=== PATIENT | male | born 1960 | race African-American/Black ===

== ENCOUNTER 2016-05-02 19:37 | Emergency (ER) | payer OTHER ==
[~2016-05-02] VITALS: Ht 175.3 cm; Wt 95.3 kg
[~2016-05-02 19:37] MED LIST: ASPI81TA2 PO; BENA10TA2 PO; NPH,100V SQ; SIMV40TA5 PO
[2016-05-02 20:27] LABS: ABG BASE EXCESS 4.4 mmol/L; ABG HCO3 28.8 mmol/L; ABG PCO2 42.1 mmHg (35.0-45.0); ABG PH 7.453 (7.350-7.450); ABG PO2 61.8 mmHg (75.0-100.0); ABG TOTAL HEMOGLOBIN 16.4 G/dL (13.5-18.0); ALLEN TEST Pass; AaDO2 37.5 mmHg; O2Hb 87.1 % (94.0-97.0)
[2016-05-02 20:29] LABS: EOSINOPHILS # (AUTO) 0.1 /CMM (0.0-0.7); MEAN CORPUSCULAR HEMOGLOBIN 29 PG (26.0-33.0)
[2016-05-02 20:41] LABS: BASOPHILS # (AUTO) 0.1 /CMM (0.0-0.2); DIFF TOTAL % 100 %; EOSINOPHILS % (AUTO) 0.7 % (0.0-6.0); HEMATOCRIT 48 % (39-51); HEMOGLOBIN 15.8 g/dL (13.5-17.5); LYMPHOCYTES % (AUTO) 22.4 % (20.0-44.0); MEAN CORPUSCULAR HGB CONC 33 g/dl (31.0-36.0); MEAN CORPUSCULAR VOLUME 90 fL (80-96); MONOCYTES # (AUTO) 0.8 /CMM (0.1-1.30); NEUTROPHILS # (AUTO) 5.9 /CMM (1.8-8.9); NEUTROPHILS % (AUTO) 66.9 % (43.0-81.0); PLATELET COUNT (AUTO) 209 /CMM (150-450); RED BLOOD CELL COUNT(AUTO) 5.37 MIL/uL (4.5-6.0); WHITE BLOOD COUNT (AUTO) 8.9 K/uL (4.3-11.0)
[2016-05-02 20:42] LABS: CALCIUM, SERUM 9.1 mg/dL (8.5-10.1); POTASSIUM 4.4 mmol/L (3.5-5.1)
[2016-05-02 21:09] VITALS: BP 151/61
[2016-05-02 21:21] LABS: ACETONE, SERUM NEGATIVE (NEGATIVE)
== END 2016-05-02 21:11 | disposition home or self-care (01) ==
LOC: ER 19:37
DX: E11.65 Type 2 diabetes mellitus with hyperglycemia (principal); I10 Essential (primary) hypertension; Z91.14 Patient's other noncompliance with medication regimen; F17.200 Nicotine dependence, unspecified, uncomplicated; Z79.82 Long term (current) use of aspirin; Z79.4 Long term (current) use of insulin
CPT/HCPCS: 36415; 36600; 80048; 82010; 82962; 83735; 85025; 99284; A4606; Z7610

== ENCOUNTER 2016-05-03 09:50 | Emergency (ER) | payer OTHER ==
[~2016-05-03] VITALS: Ht 175.3 cm; Wt 95.3 kg
[2016-05-03 09:57] VITALS: BP 138/98
== END 2016-05-03 10:15 | disposition home or self-care (01) ==
LOC: ER 09:54
DX: I10 Essential (primary) hypertension (principal); E11.9 Type 2 diabetes mellitus without complications; F17.200 Nicotine dependence, unspecified, uncomplicated; Z79.82 Long term (current) use of aspirin
CPT/HCPCS: 99283; A4606; Z7610

== ENCOUNTER 2016-06-29 08:30 | Emergency (ER) | payer OTHER ==
[~2016-06-29] VITALS: Ht 175.3 cm; Wt 97.5 kg
[2016-06-29 08:35] VITALS: BP 139/89
== END 2016-06-29 09:04 | disposition home or self-care (01) ==
LOC: ER 08:34
DX: Z76.0 Encounter for issue of repeat prescription (principal); E11.9 Type 2 diabetes mellitus without complications; I10 Essential (primary) hypertension; Z79.82 Long term (current) use of aspirin; F17.210 Nicotine dependence, cigarettes, uncomplicated
CPT/HCPCS: 99283; A4606; Z7610

== ENCOUNTER 2016-09-09 08:25 | Emergency (ER) | payer MEDICAID, OTHER ==
[~2016-09-09] VITALS: Ht 165.1 cm; Wt 81.6 kg
[2016-09-09 08:30] VITALS: BP 123/95
--- NOTE | 2016-09-09 08:50 | NUR ---
Patient discharged to home in stable condition. Prescription handed to patient. Written and verbal after care instructions given. Patient verbalizes understanding of instruction.
== END 2016-09-09 08:50 | disposition home or self-care (01) ==
LOC: EDUNIT# 08:25 → ER 08:27
DX: Z76.0 Encounter for issue of repeat prescription (principal); I10 Essential (primary) hypertension; E11.9 Type 2 diabetes mellitus without complications; F17.200 Nicotine dependence, unspecified, uncomplicated; Z79.82 Long term (current) use of aspirin
CPT/HCPCS: 99283; A4606; Z7610

== ENCOUNTER 2016-09-22 08:21 | Emergency (ER) | payer MEDICAID ==
[~2016-09-22] VITALS: Ht 175.3 cm; Wt 96.2 kg
[2016-09-22 08:36] VITALS: BP 137/75
== END 2016-09-22 09:00 | disposition home or self-care (01) ==
LOC: ER 08:25
DX: Z76.0 Encounter for issue of repeat prescription (principal); E11.9 Type 2 diabetes mellitus without complications; I10 Essential (primary) hypertension; Z79.82 Long term (current) use of aspirin; Z79.84 Long term (current) use of oral hypoglycemic drugs; Z79.899 Other long term (current) drug therapy; F17.200 Nicotine dependence, unspecified, uncomplicated
CPT/HCPCS: 99283; A4606; Z7610

== ENCOUNTER 2016-11-10 08:24 | Emergency (ER) | payer MEDICAID, OTHER ==
[~2016-11-10] VITALS: Ht 175.3 cm; Wt 100.7 kg
[2016-11-10 08:24] VITALS: BP 126/93
== END 2016-11-10 08:48 | disposition home or self-care (01) ==
LOC: ER 08:28
DX: Z76.0 Encounter for issue of repeat prescription (principal); E11.9 Type 2 diabetes mellitus without complications; I10 Essential (primary) hypertension; Z79.82 Long term (current) use of aspirin; F17.200 Nicotine dependence, unspecified, uncomplicated
CPT/HCPCS: 99283; A4606; Z7610

== ENCOUNTER 2017-01-14 07:28 | Emergency (ER) | payer OTHER ==
[~2017-01-14] VITALS: Ht 175.3 cm; Wt 97.5 kg
[2017-01-14 07:28] VITALS: BP 143/88
== END 2017-01-14 08:21 | disposition home or self-care (01) ==
LOC: ER 07:31
DX: Z76.0 Encounter for issue of repeat prescription (principal); E11.65 Type 2 diabetes mellitus with hyperglycemia; F17.210 Nicotine dependence, cigarettes, uncomplicated; I10 Essential (primary) hypertension; Z79.82 Long term (current) use of aspirin; Z79.4 Long term (current) use of insulin
CPT/HCPCS: 99283; 99406; A4606; Z7610

== ENCOUNTER 2017-02-09 07:59 | Emergency (ER) | payer MEDICAID, OTHER ==
[~2017-02-09] VITALS: Ht 175.3 cm; Wt 97.5 kg
[2017-02-09 07:59] VITALS: BP 155/110
== END 2017-02-09 08:31 | disposition home or self-care (01) ==
LOC: ER 08:04
DX: Z76.0 Encounter for issue of repeat prescription (principal); E11.65 Type 2 diabetes mellitus with hyperglycemia; I10 Essential (primary) hypertension; Z79.82 Long term (current) use of aspirin; Z79.4 Long term (current) use of insulin
CPT/HCPCS: 99283; A4606; Z7610

== ENCOUNTER 2017-03-18 21:52 | Emergency (ER) | payer MEDICAID ==
[~2017-03-18] VITALS: Ht 175.3 cm; Wt 77.1 kg
[~2017-03-18 21:52] MED LIST changes: +ASPI-1169 PO; -ASPI81TA2 PO
[2017-03-18 22:16] VITALS: BP 143/90
== END 2017-03-18 22:49 | disposition home or self-care (01) ==
LOC: ER 21:53
DX: Z76.0 Encounter for issue of repeat prescription (principal); I10 Essential (primary) hypertension; E11.9 Type 2 diabetes mellitus without complications; F17.200 Nicotine dependence, unspecified, uncomplicated; Z79.82 Long term (current) use of aspirin; Z79.4 Long term (current) use of insulin
CPT/HCPCS: A4606; Z7610

== ENCOUNTER 2017-06-29 11:45 | Emergency (ER) | payer MEDICAID, OTHER ==
[~2017-06-29] VITALS: Ht 175.3 cm; Wt 79.4 kg
[2017-06-29 11:45] VITALS: BP 121/77
[~2017-06-29 11:45] MED LIST changes: -BENA10TA2 PO; +BENA10TA9 PO
== END 2017-06-29 12:31 | disposition home or self-care (01) ==
LOC: ER 11:50
DX: Z76.0 Encounter for issue of repeat prescription (principal); I10 Essential (primary) hypertension; E11.9 Type 2 diabetes mellitus without complications; F17.200 Nicotine dependence, unspecified, uncomplicated; Z79.82 Long term (current) use of aspirin; Z79.4 Long term (current) use of insulin
CPT/HCPCS: 99283; A4606; Z7610

== ENCOUNTER 2017-08-06 08:14 | Emergency (ER) | payer OTHER ==
[~2017-08-06] VITALS: Ht 182.9 cm; Wt 77.1 kg
[2017-08-06 08:17] VITALS: BP 137/91
== END 2017-08-06 08:32 | disposition home or self-care (01) ==
LOC: ER 08:17
DX: I10 Essential (primary) hypertension (principal); E11.9 Type 2 diabetes mellitus without complications; F17.200 Nicotine dependence, unspecified, uncomplicated; Z76.0 Encounter for issue of repeat prescription; Z79.82 Long term (current) use of aspirin
CPT/HCPCS: A4606; Z7610

== ENCOUNTER 2017-09-16 06:52 | Emergency (ER) | payer OTHER ==
[~2017-09-16] VITALS: Ht 170.2 cm; Wt 90.3 kg
[2017-09-16 07:02] VITALS: BP 135/90
[2017-09-16] MEDS ORDERED: INSULIN REGULAR, HUMAN 100 UNIT/ML 10 ML VIAL ONE (07:29)
[2017-09-16] MEDS ORDERED: INSULIN REGULAR, HUMAN 100 UNIT/ML 10 ML VIAL SQ ONE (07:30)
== END 2017-09-16 07:45 | disposition home or self-care (01) ==
LOC: ER 06:55
DX: E11.65 Type 2 diabetes mellitus with hyperglycemia (principal); I10 Essential (primary) hypertension; F17.200 Nicotine dependence, unspecified, uncomplicated; Z79.82 Long term (current) use of aspirin; Z79.4 Long term (current) use of insulin
CPT/HCPCS: 82962; 96372; 99283; A4606; J1815; Z7610

== ENCOUNTER 2017-12-10 06:17 | Emergency (ER) | payer OTHER ==
[~2017-12-10] VITALS: Ht 175.3 cm; Wt 88.5 kg
[2018-01-08 10:44] VITALS: BP 145/98
== END 2017-12-10 06:36 | disposition home or self-care (01) ==
LOC: ER 06:22
DX: I10 Essential (primary) hypertension (principal); E11.9 Type 2 diabetes mellitus without complications; F17.200 Nicotine dependence, unspecified, uncomplicated; Z79.82 Long term (current) use of aspirin
CPT/HCPCS: A4606; Z7610

== ENCOUNTER 2018-05-02 07:53 | Emergency (ER) | payer OTHER ==
[~2018-05-02] VITALS: Ht 175.3 cm; Wt 90.7 kg
[2018-05-02 07:53] VITALS: BP 142/74
== END 2018-05-02 08:44 | disposition home or self-care (01) ==
LOC: ER 07:56
DX: J06.9 Acute upper respiratory infection, unspecified (principal); I10 Essential (primary) hypertension; E11.9 Type 2 diabetes mellitus without complications; F17.200 Nicotine dependence, unspecified, uncomplicated; Z79.82 Long term (current) use of aspirin
CPT/HCPCS: 99281; A4606; Z7502

== ENCOUNTER 2018-06-24 07:14 | Emergency (ER) | payer OTHER ==
[~2018-06-24] VITALS: Ht 175.3 cm; Wt 93.9 kg
[2018-06-24 07:20] VITALS: BP 156/107
== END 2018-06-24 07:46 | disposition home or self-care (01) ==
LOC: ER 07:15
DX: I10 Essential (primary) hypertension (principal); E11.9 Type 2 diabetes mellitus without complications; F17.200 Nicotine dependence, unspecified, uncomplicated; Z79.82 Long term (current) use of aspirin; Z76.0 Encounter for issue of repeat prescription
CPT/HCPCS: Z7502

== ENCOUNTER 2018-12-12 10:36 | Emergency (ER) | payer SELFPAY ==
[~2018-12-12] VITALS: Ht 175.3 cm; Wt 90.7 kg
[~2018-12-12 10:36] MED LIST changes: +BENA10TA11 PO; -BENA10TA9 PO
[2018-12-12 10:45] VITALS: BP 139/89
--- NOTE | 2018-12-12 11:32 | NUR ---
Patient discharged to home in stable condition. Written and verbal after care instructions given. Patient verbalizes understanding of instruction.
== END 2018-12-12 11:34 | disposition home or self-care (01) ==
LOC: ER 10:36
DX: E11.9 Type 2 diabetes mellitus without complications (principal); I10 Essential (primary) hypertension; F17.200 Nicotine dependence, unspecified, uncomplicated; Z76.0 Encounter for issue of repeat prescription; Z79.82 Long term (current) use of aspirin

== ENCOUNTER 2019-01-02 08:21 | Emergency (ER) | payer SELFPAY ==
[~2019-01-02] VITALS: Ht 177.8 cm; Wt 91.2 kg
--- NOTE | 2019-01-02 08:30 | NUR ---
PT CAME INTO THE ED C/O "FEELING SICK, TIRED AND UNABLE TO SLEEP". PT AAOX4, VSS, BREATHING EVEN AND UNLABORED ON ROOM AIR, -SOB, -NV. PT CONNECTED TO THE MONITOR.
--- NOTE | 2019-01-02 08:41 | NUR ---
PATIENT REFUSED LABS, INFORMED DR. STREETER. PER PATIENT HE WANTS A NOTE FOR WORK.
[2019-01-02 08:56] VITALS: BP 126/79
--- NOTE | 2019-01-02 08:56 | NUR ---
Patient discharged to home in stable condition. Written and verbal after care instructions given. Patient verbalizes understanding of instruction.
== END 2019-01-02 08:57 | disposition home or self-care (01) ==
LOC: ER 08:21
DX: G47.00 Insomnia, unspecified (principal); I10 Essential (primary) hypertension; E11.9 Type 2 diabetes mellitus without complications; F17.200 Nicotine dependence, unspecified, uncomplicated; Z79.82 Long term (current) use of aspirin; Z79.899 Other long term (current) drug therapy; Z79.4 Long term (current) use of insulin

== ENCOUNTER 2019-01-20 07:05 | Emergency (ER) | payer SELFPAY ==
[~2019-01-20] VITALS: Ht 172.7 cm; Wt 98.0 kg
[~2019-01-20 07:05] MED LIST changes: +SIMV-49 PO; -SIMV40TA5 PO
[2019-01-20 07:18] VITALS: BP 164/102
--- NOTE | 2019-01-20 07:27 | NUR ---
AT BEDSIDE FOR EVAL.
--- NOTE | 2019-01-20 07:50 | NUR ---
Patient discharged to home in stable condition. Written and verbal after care instructions given. Patient verbalizes understanding of instruction.
== END 2019-01-20 07:50 | disposition home or self-care (01) ==
LOC: ER 07:07
DX: E11.9 Type 2 diabetes mellitus without complications (principal); Z76.0 Encounter for issue of repeat prescription; I10 Essential (primary) hypertension; F17.200 Nicotine dependence, unspecified, uncomplicated; Z79.82 Long term (current) use of aspirin; Z79.899 Other long term (current) drug therapy

== ENCOUNTER 2019-03-04 12:13 | Emergency (ER) | payer SELFPAY ==
[~2019-03-04] VITALS: Ht 175.3 cm; Wt 94.3 kg
[~2019-03-04 12:13] MED LIST changes: -BENA10TA11 PO; +BENA10TA74 PO
[2019-03-04 12:17] VITALS: BP 137/77
== END 2019-03-04 12:52 | disposition home or self-care (01) ==
LOC: ER 12:14
DX: Z76.0 Encounter for issue of repeat prescription (principal); I10 Essential (primary) hypertension; E11.9 Type 2 diabetes mellitus without complications; F17.200 Nicotine dependence, unspecified, uncomplicated; Z79.899 Other long term (current) drug therapy; Z79.82 Long term (current) use of aspirin; Z79.4 Long term (current) use of insulin

== ENCOUNTER 2019-04-14 05:45 | Emergency (ER) | payer SELFPAY ==
[~2019-04-14] VITALS: Ht 175.3 cm; Wt 93.0 kg
[2019-04-14 06:03] VITALS: BP 149/103
--- NOTE | 2019-04-14 06:23 | NUR ---
AT THE BED SIDE
== END 2019-04-14 06:33 | disposition home or self-care (01) ==
LOC: ER 05:49
DX: I10 Essential (primary) hypertension (principal); E11.9 Type 2 diabetes mellitus without complications; Z76.0 Encounter for issue of repeat prescription; Z79.82 Long term (current) use of aspirin; Z79.899 Other long term (current) drug therapy

== ENCOUNTER 2019-05-19 06:10 | Emergency (ER) | payer SELFPAY ==
[~2019-05-19] VITALS: Ht 175.3 cm; Wt 93.0 kg
[2019-05-19 06:15] VITALS: BP 136/80
--- NOTE | 2019-05-19 06:40 | NUR ---
Patient discharged to home in stable condition. Written and verbal after care instructions given. Patient verbalizes understanding of instruction. Pt ambulatory with a steady gait
== END 2019-05-19 06:41 | disposition home or self-care (01) ==
LOC: ER 06:13
DX: Z76.0 Encounter for issue of repeat prescription (principal); E11.9 Type 2 diabetes mellitus without complications; Z79.82 Long term (current) use of aspirin; Z79.4 Long term (current) use of insulin

== ENCOUNTER 2019-06-19 18:00 | Emergency (ER) | payer SELFPAY ==
[~2019-06-19] VITALS: Ht 170.2 cm; Wt 74.8 kg
[2019-06-19 18:13] VITALS: BP 141/90
--- NOTE | 2019-06-19 18:37 | NUR ---
Patient discharged to home in stable condition. Written and verbal after care instructions given. Patient verbalizes understanding of instruction.
== END 2019-06-19 18:38 | disposition home or self-care (01) ==
LOC: ER 18:00
DX: E11.9 Type 2 diabetes mellitus without complications (principal); I10 Essential (primary) hypertension; Z76.0 Encounter for issue of repeat prescription; Z79.899 Other long term (current) drug therapy; Z79.4 Long term (current) use of insulin

== ENCOUNTER 2019-07-24 15:59 | Emergency (ER) | payer SELFPAY ==
[~2019-07-24] VITALS: Ht 175.3 cm; Wt 88.5 kg
[2019-07-24 16:06] VITALS: BP 143/91
--- NOTE | 2019-07-24 16:31 | NUR ---
Patient discharged to home in stable condition. Written and verbal after care instructions given. Patient verbalizes understanding of instruction.
== END 2019-07-24 16:31 | disposition home or self-care (01) ==
LOC: ER 16:00
DX: E11.9 Type 2 diabetes mellitus without complications (principal); I10 Essential (primary) hypertension; Z76.0 Encounter for issue of repeat prescription

== ENCOUNTER 2019-09-29 09:16 | Emergency (ER) | payer MEDICAID ==
[~2019-09-29] VITALS: Ht 172.7 cm; Wt 97.1 kg
[2019-09-29 09:26] VITALS: BP 122/97
--- NOTE | 2019-09-29 09:31 | NUR ---
Patient awake alert non distress denies pain or sob ,no nausea and vomiting BS 381
== END 2019-09-29 09:56 | disposition home or self-care (01) ==
LOC: ER 09:23
DX: Z76.0 Encounter for issue of repeat prescription (principal); I10 Essential (primary) hypertension; E11.9 Type 2 diabetes mellitus without complications; Z79.82 Long term (current) use of aspirin; Z79.899 Other long term (current) drug therapy
CPT/HCPCS: 82962-TC

== ENCOUNTER 2019-11-01 07:40 | Emergency (ER) | payer MEDICAID ==
[~2019-11-01] VITALS: Ht 175.3 cm; Wt 93.0 kg
[2019-11-01 07:45] VITALS: BP 140/84
--- NOTE | 2019-11-01 08:12 | NUR ---
Patient discharged to home in stable condition. Written and verbal after care instructions given. Patient verbalizes understanding of instruction.
== END 2019-11-01 08:13 | disposition home or self-care (01) ==
LOC: ER 07:43
DX: Z76.0 Encounter for issue of repeat prescription (principal); I10 Essential (primary) hypertension; E11.9 Type 2 diabetes mellitus without complications; F17.200 Nicotine dependence, unspecified, uncomplicated; Z79.4 Long term (current) use of insulin; Z79.899 Other long term (current) drug therapy
CPT/HCPCS: 82962-TC

== ENCOUNTER 2019-12-16 07:42 | Emergency (ER) | payer MEDICAID ==
[~2019-12-16] VITALS: Ht 175.3 cm; Wt 90.7 kg
[2019-12-16 07:42] VITALS: BP 149/97
--- NOTE | 2019-12-16 08:04 | NUR ---
Patient discharged to home in stable condition. Written and verbal after care instructions given. Patient verbalizes understanding of instruction.
== END 2019-12-16 08:04 | disposition home or self-care (01) ==
LOC: ER 07:46
DX: Z76.0 Encounter for issue of repeat prescription (principal); I10 Essential (primary) hypertension; E11.9 Type 2 diabetes mellitus without complications; F17.200 Nicotine dependence, unspecified, uncomplicated; Z79.4 Long term (current) use of insulin; Z79.82 Long term (current) use of aspirin; Z79.899 Other long term (current) drug therapy

== ENCOUNTER 2020-01-19 07:42 | Emergency (ER) | payer MEDICAID ==
[~2020-01-19] VITALS: Ht 175.3 cm; Wt 93.0 kg
[2020-01-19 07:52] VITALS: BP 144/91
--- NOTE | 2020-01-19 08:08 | NUR ---
Patient discharged to home in stable condition. Written and verbal after care instructions given. Patient verbalizes understanding of instruction.
== END 2020-01-19 08:09 | disposition home or self-care (01) ==
LOC: ER 08:00
DX: Z76.0 Encounter for issue of repeat prescription (principal); I10 Essential (primary) hypertension; E11.9 Type 2 diabetes mellitus without complications; Z79.899 Other long term (current) drug therapy; Z79.82 Long term (current) use of aspirin

== ENCOUNTER 2020-02-24 13:10 | Emergency (ER) | payer MEDICAID ==
[~2020-02-24] VITALS: Ht 175.3 cm; Wt 87.1 kg
[2020-02-24 13:26] VITALS: BP 138/96
== END 2020-02-24 14:09 | disposition home or self-care (01) ==
LOC: ER 13:11
DX: E11.9 Type 2 diabetes mellitus without complications (principal); I10 Essential (primary) hypertension; Z76.0 Encounter for issue of repeat prescription; F17.200 Nicotine dependence, unspecified, uncomplicated; Z79.82 Long term (current) use of aspirin; Z79.4 Long term (current) use of insulin; Z79.899 Other long term (current) drug therapy

== ENCOUNTER 2020-03-10 11:50 | Emergency (ER) | payer MEDICAID ==
[~2020-03-10] VITALS: Ht 175.3 cm; Wt 89.8 kg
[2020-03-10 12:20] VITALS: BP 142/84
[2020-03-10] MEDS ORDERED: LIDOCAINE HCL/PF 1% 30 ML VIAL TP ONE (12:30)
[2020-03-10] MEDS ORDERED: TDAP [DIPH/PERTUSSIS/TET] 0.5 ML VIAL IM ONE ×2 (12:30→13:42)
[2020-03-10] MEDS ORDERED: BACI/NEOM/POLY B OINT PKT 1 UDPKT PACKET TP ONE (12:30)
--- NOTE | 2020-03-10 13:25 | NUR ---
EMT AT BEDSIDE FOR WOUND DRESSING AND FINGER SPLINT.
--- NOTE | 2020-03-10 13:51 | NUR ---
Patient discharged to home in stable condition. Written and verbal after care instructions given. Patient verbalizes understanding of instruction. Pt ambulatory with a steady gait
== END 2020-03-10 13:52 | disposition home or self-care (01) ==
LOC: ER 11:52
DX: S62.522B Displaced fracture of distal phalanx of left thumb, initial encounter for open fracture (principal); I10 Essential (primary) hypertension; E11.9 Type 2 diabetes mellitus without complications; Z79.82 Long term (current) use of aspirin; Z79.899 Other long term (current) drug therapy; W01.0XXA Fall on same level from slipping, tripping and stumbling without subsequent striking against object, initial encounter; Y93.89 Activity, other specified; Y92.89 Other specified places as the place of occurrence of the external cause; Y99.8 Other external cause status
CPT/HCPCS: 29130; 73140; 90471; 90715; 99283; A6403; J3490

== ENCOUNTER 2020-03-21 07:29 | Emergency (ER) | payer MEDICAID ==
[~2020-03-21] VITALS: Ht 175.3 cm; Wt 86.2 kg
[2020-03-21 07:43] VITALS: BP 145/99
--- NOTE | 2020-03-21 09:15 | NUR ---
suture removal done. tolerated well. 4 sutures taken out.
== END 2020-03-21 09:20 | disposition home or self-care (01) ==
LOC: ER 07:32
DX: E11.65 Type 2 diabetes mellitus with hyperglycemia (principal); I10 Essential (primary) hypertension; Z76.0 Encounter for issue of repeat prescription; F17.200 Nicotine dependence, unspecified, uncomplicated; Z79.899 Other long term (current) drug therapy; Z79.82 Long term (current) use of aspirin; Z79.84 Long term (current) use of oral hypoglycemic drugs

== ENCOUNTER 2020-04-20 16:58 | Emergency (ER) | payer MEDICAID ==
[~2020-04-20] VITALS: Ht 180.3 cm; Wt 90.7 kg
[2020-04-20 17:09] VITALS: BP 144/92
[2020-04-20] MEDS ORDERED: BENA10TA74 PO (17:32)
[2020-04-20] MEDS ORDERED: GLYB5TAB7 PO (17:32)
--- NOTE | 2020-04-20 17:38 | NUR ---
Patient discharged to home in stable condition. Written and verbal after care instructions given. Patient verbalizes understanding of instruction. Pt ambulatory with a steady gait
--- NOTE | 2020-04-20 17:48 | NUR ---
Hero lopez in [facility] - 04/20/20 at 1749 by HERMES Patient discharged to home in stable condition. Written and verbal after care instructions given. Patient verbalizes understanding of instruction.
== END 2020-04-20 17:48 | disposition home or self-care (01) ==
LOC: ER 17:00
DX: I10 Essential (primary) hypertension (principal); E11.9 Type 2 diabetes mellitus without complications; F17.200 Nicotine dependence, unspecified, uncomplicated; Z76.0 Encounter for issue of repeat prescription; Z79.82 Long term (current) use of aspirin; Z79.899 Other long term (current) drug therapy

== ENCOUNTER 2020-05-03 07:27 | Emergency (ER) | payer MEDICAID ==
[~2020-05-03] VITALS: Ht 175.3 cm; Wt 89.8 kg
[~2020-05-03 07:27] MED LIST changes: +GLYB5TAB7 PO
[2020-05-03 07:48] VITALS: BP 141/100
[2020-05-03] MEDS ORDERED: GLYB5TAB7 PO (07:56)
[2020-05-03] MEDS ORDERED: BENA20TA9 PO (07:56)
[2020-05-03] MEDS ORDERED: METF-441 PO (07:56)
== END 2020-05-03 08:10 | disposition home or self-care (01) ==
LOC: ER 07:30
DX: Z76.0 Encounter for issue of repeat prescription (principal); E11.9 Type 2 diabetes mellitus without complications; I10 Essential (primary) hypertension; F17.200 Nicotine dependence, unspecified, uncomplicated; Z79.84 Long term (current) use of oral hypoglycemic drugs; Z79.82 Long term (current) use of aspirin; Z79.899 Other long term (current) drug therapy

== ENCOUNTER 2021-05-16 08:51 | Emergency (ER) | payer MEDICAID, OTHER ==
[~2021-05-16] VITALS: Ht 152.4 cm; Wt 90.7 kg
[~2021-05-16 08:51] MED LIST changes: +BENA20TA9 PO; +METF-441 PO
[2021-05-16 09:03] VITALS: BP 154/97
[2021-05-16] MEDS ORDERED: METF-441 PO (09:13)
[2021-05-16] MEDS ORDERED: GLYB5TAB7 PO (09:13)
[2021-05-16] MEDS ORDERED: BENA20TA9 PO (09:13)
--- NOTE | 2021-05-16 10:10 | NUR ---
Patient discharged to home in stable condition. Written and verbal after care instructions given. Patient verbalizes understanding of instruction.
== END 2021-05-16 10:10 | disposition home or self-care (01) ==
LOC: ER 08:58
DX: I10 Essential (primary) hypertension (principal); Z76.0 Encounter for issue of repeat prescription; E11.9 Type 2 diabetes mellitus without complications; F17.200 Nicotine dependence, unspecified, uncomplicated; Z79.84 Long term (current) use of oral hypoglycemic drugs; Z79.82 Long term (current) use of aspirin; Z79.4 Long term (current) use of insulin; Z79.899 Other long term (current) drug therapy

== ENCOUNTER 2021-06-18 07:30 | Emergency (ER) | payer OTHER ==
[~2021-06-18] VITALS: Ht 170.2 cm; Wt 90.7 kg
[2021-06-18 07:46] VITALS: BP 134/81
[2021-06-18] MEDS ORDERED: METF-441 PO ×2 (07:52→08:27)
[2021-06-18] MEDS ORDERED: BENA20TA9 PO (07:52)
[2021-06-18] MEDS ORDERED: GLYB5TAB7 PO ×2 (07:52→08:27)
[2021-06-18] MEDS ORDERED: BENA10TA74 PO (08:27)
--- NOTE | 2021-06-18 08:56 | NUR ---
Patient discharged to home in stable condition. Written and verbal after care instructions given. Patient verbalizes understanding of instruction.
== END 2021-06-18 08:56 | disposition home or self-care (01) ==
LOC: ER 07:36
DX: H61.21 Impacted cerumen, right ear (principal); Z76.0 Encounter for issue of repeat prescription; I10 Essential (primary) hypertension; E11.9 Type 2 diabetes mellitus without complications; Z79.84 Long term (current) use of oral hypoglycemic drugs; Z79.4 Long term (current) use of insulin; Z79.899 Other long term (current) drug therapy

== ENCOUNTER 2021-07-23 08:32 | Emergency (ER) | payer OTHER ==
[~2021-07-23] VITALS: Ht 160 cm; Wt 67.1 kg
[2021-07-23 09:02] VITALS: BP 161/106
--- NOTE | 2021-07-23 09:02 | NUR ---
MALLORY NEEDS MED REFILL FOR DIABETES AND BLOOD PRESSURE MEDICINE, "I DON'T QUALIFY FOR MEDICAL", TAKES GLYBURIDE, BENAPEZIL, AND METFORMIN.
[2021-07-23] MEDS ORDERED: GLYB5TAB7 PO (09:16)
[2021-07-23] MEDS ORDERED: BENA20TA9 PO (09:16)
[2021-07-23] MEDS ORDERED: METF-441 PO (09:16)
--- NOTE | 2021-07-23 09:20 | NUR ---
Patient discharged to home in stable condition. Written and verbal after care instructions given. Patient verbalizes understanding of instruction.
== END 2021-07-23 09:21 | disposition home or self-care (01) ==
LOC: ER 08:51
DX: E11.9 Type 2 diabetes mellitus without complications (principal); Z76.0 Encounter for issue of repeat prescription; I10 Essential (primary) hypertension; F17.200 Nicotine dependence, unspecified, uncomplicated; Z79.899 Other long term (current) drug therapy

== ENCOUNTER 2021-11-03 08:38 | Emergency (ER) | payer OTHER ==
[~2021-11-03] VITALS: Ht 175.3 cm; Wt 88.5 kg
[~2021-11-03 08:38] MED LIST changes: -NPH,100V SQ; -SIMV-49 PO
[2021-11-03 08:52] VITALS: BP 122/82
[2021-11-03] MEDS ORDERED: BENA20TA9 PO (09:09)
[2021-11-03] MEDS ORDERED: GLYB5TAB7 PO (09:09)
== END 2021-11-03 09:16 | disposition home or self-care (01) ==
LOC: ER 08:42
DX: Z76.0 Encounter for issue of repeat prescription (principal); I10 Essential (primary) hypertension; E11.9 Type 2 diabetes mellitus without complications; F17.200 Nicotine dependence, unspecified, uncomplicated; Z79.899 Other long term (current) drug therapy

== ENCOUNTER 2021-12-18 08:42 | Emergency (ER) | payer OTHER ==
[~2021-12-18] VITALS: Ht 175.3 cm; Wt 90.7 kg
[2021-12-18] MEDS ORDERED: BENA20TA9 PO (08:50)
[2021-12-18 08:51] VITALS: BP 149/95
[2021-12-18] MEDS ORDERED: BENA1TAB18 PO (09:22)
--- NOTE | 2021-12-18 09:25 | NUR ---
Seen by MD for med refill. Rx sent electronically. Patient discharged to home in stable condition. Written and verbal after care instructions given. Patient verbalizes understanding of instruction.
== END 2021-12-18 09:25 | disposition home or self-care (01) ==
LOC: ER 08:48
DX: Z76.0 Encounter for issue of repeat prescription (principal); I10 Essential (primary) hypertension; E11.9 Type 2 diabetes mellitus without complications; Z79.899 Other long term (current) drug therapy

== ENCOUNTER 2022-01-16 06:41 | Emergency (ER) | payer OTHER ==
[~2022-01-16] VITALS: Ht 175.3 cm; Wt 86.2 kg
[~2022-01-16 06:41] MED LIST changes: -BENA10TA74 PO; +BENA1TAB18 PO
[2022-01-16 06:56] VITALS: BP 142/82
--- NOTE | 2022-01-16 07:02 | NUR ---
ACCUCHECK 355
[2022-01-16] MEDS ORDERED: BENA1TAB18 PO (07:11)
[2022-01-16] MEDS ORDERED: METF-442 PO (07:11)
[2022-01-16] MEDS ORDERED: GLYB5TAB7 PO (07:11)
== END 2022-01-16 07:19 | disposition home or self-care (01) ==
LOC: ER 06:47
DX: Z91.14 Patient's other noncompliance with medication regimen (principal); E11.9 Type 2 diabetes mellitus without complications; I10 Essential (primary) hypertension; F17.200 Nicotine dependence, unspecified, uncomplicated; Z79.899 Other long term (current) drug therapy
CPT/HCPCS: 82962-TC

== ENCOUNTER 2022-03-12 09:44 | Emergency (ER) | payer OTHER ==
[~2022-03-12] VITALS: Ht 175.3 cm; Wt 86.6 kg
[~2022-03-12 09:44] MED LIST changes: -METF-441 PO; +METF-442 PO
[2022-03-12 09:57] VITALS: BP 137/88
--- NOTE | 2022-03-12 10:22 | NUR ---
ACCUCHECK BS 349MG/DL; DR MATOS MADE AWARE.
[2022-03-12] MEDS ORDERED: GLYB5TAB7 PO (10:37)
[2022-03-12] MEDS ORDERED: METF-441 PO (10:37)
[2022-03-12] MEDS ORDERED: BENA1TAB18 PO (10:37)
--- NOTE | 2022-03-12 10:41 | NUR ---
Patient discharged to home in stable condition. Written and verbal after care instructions given. Patient verbalizes understanding of instruction.
== END 2022-03-12 10:45 | disposition home or self-care (01) ==
LOC: ER 09:53
DX: Z76.0 Encounter for issue of repeat prescription (principal); E11.65 Type 2 diabetes mellitus with hyperglycemia; I10 Essential (primary) hypertension; F17.200 Nicotine dependence, unspecified, uncomplicated; Z79.899 Other long term (current) drug therapy
CPT/HCPCS: 82962-TC

== ENCOUNTER 2022-04-23 07:46 | Emergency (ER) | payer OTHER ==
[~2022-04-23] VITALS: Ht 175.3 cm; Wt 93.0 kg
[~2022-04-23 07:46] MED LIST changes: +METF-441 PO
[2022-04-23 07:55] VITALS: BP 164/97
[2022-04-23] MEDS ORDERED: METF-441 PO (08:08)
[2022-04-23] MEDS ORDERED: BENA1TAB18 PO (08:08)
[2022-04-23] MEDS ORDERED: GLYB5TAB7 PO (08:08)
== END 2022-04-23 08:15 | disposition home or self-care (01) ==
LOC: ER 07:52
DX: E11.65 Type 2 diabetes mellitus with hyperglycemia (principal); I10 Essential (primary) hypertension; F17.200 Nicotine dependence, unspecified, uncomplicated; Z79.899 Other long term (current) drug therapy; Z79.84 Long term (current) use of oral hypoglycemic drugs; Z79.82 Long term (current) use of aspirin
CPT/HCPCS: 82962-TC

== ENCOUNTER 2022-05-29 07:50 | Emergency (ER) | payer OTHER ==
[~2022-05-29] VITALS: Ht 175.3 cm; Wt 86.6 kg
[2022-05-29 08:02] VITALS: BP 136/78
[2022-05-29] MEDS ORDERED: BENA1TAB18 PO (08:06)
== END 2022-05-29 08:11 | disposition home or self-care (01) ==
LOC: ER 07:58
DX: I10 Essential (primary) hypertension (principal); E11.9 Type 2 diabetes mellitus without complications; F17.200 Nicotine dependence, unspecified, uncomplicated; Z79.899 Other long term (current) drug therapy; Z79.84 Long term (current) use of oral hypoglycemic drugs

== ENCOUNTER 2024-02-24 15:03 | Emergency (ER) | payer OTHER ==
[~2024-02-24] VITALS: Ht 175.3 cm; Wt 76.2 kg
[2024-02-24 16:55] VITALS: BP 151/69; TEMP 97.9
[2024-02-24 17:37] VITALS: O2SAT 99
== END 2024-02-24 17:39 | disposition home or self-care (01) ==
LOC: ER 15:03
DX: H11.31 Conjunctival hemorrhage, right eye (principal); E11.9 Type 2 diabetes mellitus without complications; F17.200 Nicotine dependence, unspecified, uncomplicated; I10 Essential (primary) hypertension; Z79.82 Long term (current) use of aspirin; Z79.84 Long term (current) use of oral hypoglycemic drugs; Z79.899 Other long term (current) drug therapy